=== PATIENT | female | born 1960 | race Caucasian/White ===

== ENCOUNTER 2019-11-08 06:41 | Day surgery (SDC) | payer OTHER, SELFPAY ==
[~2019-11-08] VITALS: Ht 149.9 cm; Wt 59.0 kg
[2019-11-08] MEDS ORDERED: LIDOCAINE 2% 100 MG/5 ML UJET TP ONE (08:48)
[2019-11-08] MEDS ORDERED: fentaNYL citrate 0.05 MG/ML VIAL ONE (08:48)
[2019-11-08] MEDS ORDERED: MIDAZOLAM 2 MG/2 ML VIAL ONE ×2 (08:48)
[2019-11-08] MEDS ORDERED: fentaNYL citrate 0.05 MG/ML VIAL IVP ONE (10:00)
[2019-11-08] MEDS ORDERED: MIDAZOLAM 2 MG/2 ML VIAL IVP ONE (10:00)
== END 2019-11-08 10:00 | disposition home or self-care (01) ==
LOC: MDS 06:41 → MFCC 06:42 → MDS 10:00 → MERGE 15:05
PROVIDERS: ATTEND Internal Medicine Gastroenterology
DX: Z12.11 Encounter for screening for malignant neoplasm of colon (principal); K29.70 Gastritis, unspecified, without bleeding; K29.80 Duodenitis without bleeding; R13.19 Other dysphagia; Z80.0 Family history of malignant neoplasm of digestive organs; K21.0 Gastro-esophageal reflux disease with esophagitis; Z90.710 Acquired absence of both cervix and uterus; Z90.49 Acquired absence of other specified parts of digestive tract; Z20.828 Contact with and (suspected) exposure to other viral communicable diseases
CPT/HCPCS: 36415; 43239; 45378; 86677; J2250; J3010; U0003